=== PATIENT | female | born 1985 | race Caucasian/White ===

== ENCOUNTER 2016-11-12 17:34 | Emergency (ER) | payer OTHER ==
[2016-11-12 18:57] LABS: CHLORIDE,CL 108 mmol/L (98-110); SODIUM,NA 140 mmol/L (136-146)
[2016-11-12] MEDS ORDERED: Sodium Chloride 0.9% 1,000 ML IV ONE (19:03)
--- NOTE | 2016-11-12 19:03 | EDM.PDOC ---
ED HPI GENERAL MEDICAL PROBLEM - General Chief Complaint: Fever Stated Complaint: COLD/FEVER Time Seen by Provider: 11/12/16 18:25 Source of Information: Reports: Patient History Limitations: Reports: No limitations - History of Present Illness INITIAL COMMENTS - FREE TEXT/NARRATIVE: History of present illness: [31-year-old female comes in complaining of fever, nausea, and general feelings of being unwell. Patient indicates she's also had some cold-type complaints with sinus discharge that is green white and a cough visit is refractory to OTC treatment] Review of systems: As per history of present illness and below otherwise all systems reviewed and negative. Past medical history: As per history of present illness and as reviewed below otherwise noncontributory. Surgical history: As per history of present illness and as reviewed below otherwise noncontributory. Social history: No reported history of drug or alcohol abuse. Family history: As per history of present illness and as reviewed below otherwise noncontributory. Physical exam: HEENT: Atraumatic, normocephalic, pupils reactive, negative for conjunctival pallor or scleral icterus, mucous membranes moist with oral pharyngeal erythema without white patchy exudate, throat clear, neck supple, nontender, trachea midline. Lungs: Clear to auscultation, breath sounds equal bilaterally, chest nontender. Heart: S1S2, regular, negative for clicks, rubs, or JVD. Abdomen: Soft, nondistended, nontender. Negative for masses or hepatosplenomegaly. Negative for costovertebral tenderness. Pelvis: Stable nontender. Genitourinary: Deferred. Rectal: Deferred. Extremities: Atraumatic, negative for cords or calf pain. Neurovascular unremarkable. Neuro: Awake, alert, oriented. Cranial nerves II through XII unremarkable. Cerebellum unremarkable. Motor and sensory unremarkable throughout. Exam nonfocal. Diagnostics: [CBC, CMP, UA, Urine hCG] Therapeutics: [] Impression: [Bacterial pharyngitis, cough, fever] Plan: [antibiotics , t3] Definitive disposition and diagnosis as appropriate pending reevaluation and review of above. - Related Data Allergies Allergy/AdvReac Type Severity Reaction Status Date / Time azithromycin [From Zithromax] Allergy Hives Verified 11/12/16 17:55 hydrocodone Allergy Nausea Verified 11/12/16 17:56 Penicillins Allergy Rash Verified 11/12/16 17:56 Home Meds: Home Meds . 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 Musculoskeletal History: Reports: None Neurological History: Reports: None Psychiatric History: Reports: None Endocrine/Metabolic History: Reports: None Hematologic History: Reports: None Immunologic History: Reports: None Oncologic (Cancer) History: Reports: None Dermatologic History: Reports: None - Infectious Disease History Infectious Disease History: Reports: None - Past Surgical History Head Surgeries/Procedures: Reports: None HEENT Surgical History: Reports: Naso-sinus surgery, Tonsillectomy Female Surgical History: Reports: D&C Social & Family History - Tobacco Use Smoking Status *Q: Never Smoker Second Hand Smoke Exposure: No - Caffeine Use Caffeine Use: Reports: Coffee, Soda - Recreational Drug Use Recreational Drug Use: No ED ROS GENERAL - Review of Systems Review Of Systems: See Below (See history of present illness) ED EXAM, GENERAL - Physical Exam Exam: See Below (See history of present illness) Course - Vital Signs Last Recorded V/S: Last Vital Signs Temp 37.7 C 11/12/16 19:00 Pulse 112 H 11/12/16 20:35 Resp 18 11/12/16 20:35 BP 134/67 11/12/16 20:35 Pulse Ox 98 11/12/16 20:35 - Orders/Labs/Meds Orders: Active Orders 24 hr Category Date Time Status RT Aerosol Therapy [RC] ASDIRECTED Care 11/12/16 20:05 Ordered CULTURE STREP A CONFIRMATION [RM] Stat Lab 11/12/16 20:30 Results STREP SCRN A RAPID W CULT CONF [RM] Stat Lab 11/12/16 20:17 Uncollected Labs: Laboratory Tests 11/12/16 11/12/16 11/12/16 Range/Units 18:03 18:25 18:25 WBC 7.59 (4.0-11.0) K/uL RBC 4.95 (4.30-5.90) M/uL Hgb 14.9 (12.0-16.0) g/dL Hct 43.6 (36.0-46.0) % MCV 88.1 (80.0-98.0) fL MCH 30.1 (27.0-32.0) pg MCHC 34.2 (31.0-37.0) g/dL RDW Std Deviation 42.4 (28.0-62.0) fl RDW Coeff of Nicole 13 (11.0-15.0) % Plt Count 214 (150-400) K/uL MPV 9.60 (7.40-12.00) fL Neut % (Auto) 58.9 (48.0-80.0) % Lymph % (Auto) 25.4 (16.0-40.0) % [place] % (Auto) 12.4 (0.0-15.0) % Eos % (Auto) 3.0 (0.0-7.0) % Baso % (Auto) 0.3 (0.0-1.5) % Neut # (Auto) 4.5 (1.4-5.7) K/uL Lymph # (Auto) 1.9 (0.6-2.4) K/uL [place] # (Auto) 0.9 H (0.0-0.8) K/uL Eos # (Auto) 0.2 (0.0-0.7) K/uL Baso # (Auto) 0.0 (0.0-0.1) K/uL Nucleated RBC % 0.0 /100WBC Nucleated RBCs # 0 K/uL Sodium 140 (136-146) mmol/L Potassium 4.1 (3.5-5.1) mmol/L Chloride 108 (98-110) mmol/L Carbon Dioxide 22 (21-31) mmol/L BUN 12 (6.0-23.0) mg/dL Creatinine 0.9 (0.6-1.5) mg/dL Est Cr Clr Drug Dosing 76.30 mL/min Estimated GFR (MDRD) > 60.0 ml/min Glucose 76 (60-110) mg/dL Calcium 9.7 (8.8-10.8) mg/dL Total Bilirubin 0.3 (0.1-1.5) mg/dL AST 22 (5-40) IU/L ALT 23 (8-54) IU/L Alkaline Phosphatase 90 (40-150) Total Protein 7.8 (6.0-8.0) g/dL Albumin 4.4 (3.5-5.0) g/dL Globulin 3.4 (2.0-3.5) g/dL Albumin/Globulin Ratio 1.3 (1.3-2.8) HCG, Quant 1.2 mIU/mL Urine Color YELLOW Urine Appearance CLEAR Urine pH 6.5 (5.0-8.0) Ur Specific [place] 1.015 (1.001-1.035) Urine Protein NEGATIVE (NEGATIVE) mg/dL Urine Glucose (UA) NEGATIVE (NEGATIVE) mg/dL Urine Ketones NEGATIVE (NEGATIVE) mg/dL Urine Occult Blood NEGATIVE (NEGATIVE) Urine Nitrite NEGATIVE (NEGATIVE) Urine Bilirubin NEGATIVE (NEGATIVE) Urine Urobilinogen 0.2 (<2.0) EU/dL Ur Leukocyte Esterase NEGATIVE (NEGATIVE) Urine RBC 0-1 (0-2/HPF) Urine WBC 0-1 (0-5/HPF) Ur Epithelial Cells FEW (NONE-FEW) Urine Bacteria RARE (NEGATIVE) Meds: Medications Discontinued Medications Generic Name Dose Route Start Last Admin Trade Name Rashaadq PRN Reason Stop Dose Admin Albuterol/Ipratropium 3 ml 11/12/16 20:05 11/12/16 20:13 Duoneb 3.0-0.5 Mg/3 Ml NEB 11/12/16 20:06 3 ml ONETIME ONE Administration Sodium Chloride 1,000 mls @ 999 mls/hr 11/12/16 19:03 11/12/16 19:20 Normal Saline IV 11/12/16 20:03 999 mls/hr STAT ONE Administration Ketorolac Tromethamine 30 mg 11/12/16 19:22 11/12/16 20:06 Toradol IVPUSH 11/12/16 19:23 30 mg ONETIME ONE Administration Departure - Departure Time of Disposition: 20:57 Disposition: Home, Self-Care 01 Condition: good Clinical Impression: Pharyngitis, Cough, Fever Forms: ED Department Discharge Additional Instructions: The following information is given to patients seen in the emergency department who are being discharged to home. This information is to outline your options for follow-up care. We provide all patients seen in our emergency department with a follow-up referral. The need for follow-up, as well as the timing and circumstances, are variable depending upon the specifics of your emergency department visit. If you don't have a primary care physician on staff, we will provide you with a referral. We always advise you to contact your personal physician following an emergency department visit to inform them of the circumstance of the visit and for follow-up with them and/or the need for any referrals to a consulting specialist. The emergency department will also refer you to a specialist when appropriate. This referral assures that you have the opportunity for follow-up care with a specialist. All of these measure are taken in an effort to provide you with optimal care, which includes your follow-up. Under all circumstances we always encourage you to contact your private physician who remains a resource for coordinating your care. When calling for follow-up care, please make the office aware that this follow-up is from your recent emergency room visit. If for any reason you are refused follow-up, please contact the [facility] Emergency Department at and asked to speak to the emergency department charge nurse. Take medication as directed Pump and dump this first round of breast milk as discussed Followup with primary care 1-2 days Return to ED as needed as discussed - My Orders Last 24 Hours: My Active Orders 11/12/16 20:05 RT Aerosol Therapy [RC] ASDIRECTED 11/12/16 20:17 STREP SCRN A RAPID W CULT CONF [RM] Stat 11/12/16 20:30 CULTURE STREP A CONFIRMATION [] Stat - Assessment/Plan Last 24 Hours: My Active Orders 11/12/16 20:05 RT Aerosol Therapy [RC] ASDIRECTED 11/12/16 20:17 STREP SCRN A RAPID W CULT CONF [RM] Stat 11/12/16 20:30 CULTURE STREP A CONFIRMATION [RM] Stat
[2016-11-12] MEDS ORDERED: Ketorolac 30 MG/ML SDV IVPUSH ONE (19:22)
[2016-11-12] MEDS ORDERED: Albuterol/Ipratropium 3.0-0.5 MG/3 ML Neb Soln NEB ONE (20:05)
[2016-11-12 20:36] VITALS: BP 134/67
== END 2016-11-12 21:06 | disposition home or self-care (01) ==
LOC: MW.ED 17:34
DX: J02.8 Acute pharyngitis due to other specified organisms (principal); B96.89 Other specified bacterial agents as the cause of diseases classified elsewhere; J45.909 Unspecified asthma, uncomplicated; Z98.890 Other specified postprocedural states; Z88.0 Allergy status to penicillin; Z88.1 Allergy status to other antibiotic agents; Z88.5 Allergy status to narcotic agent
CPT/HCPCS: 36415; 80053; 81001; 84702; 85025; 87081; 87880; 94664; 96361; 96374; 99284; J1885; J7040; 99283

== ENCOUNTER 2017-08-09 07:34 | Day surgery (SDC) | payer OTHER ==
--- NOTE | 2017-08-09 08:15 | PCM.PREANE ---
Preanesthetic Assessment - Anesthesia/Transfusion/Family Hx Anesthesia History: Prior Anesthesia Without Reaction Family History of Anesthesia Reaction: No Transfusion History: No Prior Transfusion(s) - Review of Systems General: No Symptoms Pulmonary: No Symptoms Cardiovascular: No Symptoms Gastrointestinal: No Symptoms Neurological: No Symptoms Other: Reports: None - Physical Assessment NPO Status Date: 08/08/17 O2 Sat by Pulse Oximetry: 99 Respiratory Rate: 16 Vital Signs: Last Vital Signs Temp 36.5 C 08/09/17 07:58 Pulse 71 08/09/17 07:58 Resp 16 08/09/17 07:58 BP 114/48 L 08/09/17 07:58 Pulse Ox 99 08/09/17 07:58 Height: 1.62 m Weight: 70.307 kg ASA Class: 2 Mental Status: Alert & Oriented x3 Airway Class: Mallampati = 1 Dentition: Reports: Normal Dentition ROM/Head Extension: Full Lungs: Clear to Auscultation, Normal Respiratory Effort Cardiovascular: Regular Rate, Regular Rhythm - Lab Values: Laboratory Last Values WBC 10.67 K/uL (4.0-11.0) 08/08/17 13:00 RBC 4.87 M/uL (4.30-5.90) 08/08/17 13:00 Hgb 14.8 g/dL (12.0-16.0) 08/08/17 13:00 Hct 43.6 % (36.0-46.0) 08/08/17 13:00 MCV 89.5 fL (80.0-98.0) 08/08/17 13:00 MCH 30.4 pg (27.0-32.0) 08/08/17 13:00 MCHC 33.9 g/dL (31.0-37.0) 08/08/17 13:00 RDW Std Deviation 42.7 fl (28.0-62.0) 08/08/17 13:00 RDW Coeff of Nicole 13 % (11.0-15.0) 08/08/17 13:00 Plt Count 198 K/uL (150-400) 08/08/17 13:00 MPV 9.70 fL (7.40-12.00) 08/08/17 13:00 Nucleated RBC % 0.0 /100WBC 08/08/17 13:00 Nucleated RBCs # 0 K/uL 08/08/17 13:00 Blood Type A POSITIVE 08/08/17 13:00 Antibody Screen NEGATIVE 08/08/17 13:00 - Allergies Allergies/Adverse Reactions: Allergies Allergy/AdvReac Type Severity Reaction Status Date / Time azithromycin [From Zithromax] Allergy Hives Verified 08/08/17 10:54 hydrocodone Allergy Nausea/diar Verified 08/08/17 10:55 nikki Penicillins Allergy Rash Verified 08/08/17 10:54 - Anesthesia Plan Pre-Op Medication Ordered: None - Acknowledgements Anesthesia Type Planned: General Anesthesia Pt an Appropriate Candidate for the Planned Anesthesia: Yes Alternatives and Risks of Anesthesia Discussed w Pt/Guardian: Yes Pt/Guardian Understands and Agrees with Anesthesia Plan: Yes PreAnesthesia Questionnaire HEENT History: Reports: Other (See Below) Other HEENT History: wears glasses/contacts Cardiovascular History: Reports: None Respiratory History: Reports: Asthma Other Respiratory History: allergy induced asthma Gastrointestinal History: Reports: None Genitourinary History: Reports: None 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: Musculoskeletal History: Reports: None Neurological History: Reports: None Psychiatric History: Reports: None Endocrine/Metabolic History: Reports: None Hematologic History: Reports: None Immunologic History: Reports: None Oncologic (Cancer) History: Reports: None Dermatologic History: Reports: Eczema - Infectious Disease History Infectious Disease History: Reports: None - Past Surgical History Head Surgeries/Procedures: Reports: None HEENT Surgical History: Reports: Naso-Sinus Surgery, Tonsillectomy Other HEENT Surgeries/Procedures: nasal surgery for deviated septum Female Surgical History: Reports: D&C - SUBSTANCE USE Smoking Status *Q: Never Smoker Second Hand Smoke Exposure: No Recreational Drug Use History: No - HOME MEDS Home Medications: Home Meds . [No Known Home Meds] 11/12/16 [History]
[2017-08-09] MEDS ORDERED: Dexamethasone 4 MG/ML 5 ML MDV ONE ×2 (08:54→08:56)
[2017-08-09] MEDS ORDERED: Atropine 1 MG/ML SDV ONE ×2 (08:54→08:56)
[2017-08-09] MEDS ORDERED: Lidocaine 2% 5 ML SDV ONE ×2 (08:54→08:56)
[2017-08-09] MEDS ORDERED: Ketorolac 30 MG/ML SDV ONE ×2 (08:54→08:56)
[2017-08-09] MEDS ORDERED: Ondansetron 4 MG/2 ML SDV ONE ×2 (08:54→08:56)
[2017-08-09] MEDS ORDERED: Propofol 200 MG/20 ML SDV ONE (09:00)
[2017-08-09] MEDS ORDERED: Midazolam 1 MG/ML 2 ML SDV ONE (09:00)
[2017-08-09] MEDS ORDERED: fentaNYL 100 MCG/2 ML SDV ONE (09:00)
[2017-08-09] MEDS ORDERED: Methylergonovine 0.2 MG/1 ML Amp ONE (09:24)
[2017-08-09] MEDS ORDERED: Acetaminophen 1,000 MG in Premix Bag 1 BAG IV ONE (09:57)
[2017-08-09] MEDS ORDERED: fentaNYL 100 MCG/2 ML SDV IVPUSH PRN (09:57)
--- NOTE | 2017-08-09 10:06 | PCM.OPNOTE ---
- General Post-Op/Procedure Note Date of Surgery/Procedure: 08/09/17 Operative Procedure(s): suction dilatation and curettage Findings: preop uterus 10 week size, boggy, sounds to 11 cm. Post op firm 7-8 weeks size Pre Op Diagnosis: missed Post-Op Diagnosis: Same Anesthesia Technique: General LMA Primary Surgeon: Yazmin Christianson Anesthesia Provider: Wellington Brown Pathology: products of conception Fluid Replacement, Intraop: 1,000 EBL in mLs: 500 Complications: None Condition: Good
--- NOTE | 2017-08-09 10:21 | PCM.POSTAN ---
POST ANESTHESIA ASSESSMENT - MENTAL STATUS Mental Status: Alert, Oriented - RESPIRATORY Respiratory Status: Respiratory Rate WNL, Airway Patent, O2 Saturation Stable - CARDIOVASCULAR CV Status: Pulse Rate WNL, Blood Pressure Stable - GASTROINTESTINAL GI Status: No Symptoms - POST OP HYDRATION Hydration Status: Adequate & Stable
--- NOTE | 2017-08-09 10:21 | PCM48HPAN ---
Post Anesthesia Note - EVALUATION WITHIN 48HRS OF ANESTHETIC Vital Signs in Normal Range: Yes Patient Participated in Evaluation: Yes Respiratory Function Stable: Yes Airway Patent: Yes Cardiovascular Function Stable: Yes Hydration Status Stable: Yes Pain Control Satisfactory: Yes Nausea and Vomiting Control Satisfactory: Yes Mental Status Recovered: Yes
[2017-08-09 11:15] VITALS: BP 97/51
--- NOTE | 2017-08-09 11:45 | OR ---
SURGEON: Yazmin Christianson M.D. DATE OF PROCEDURE: 08/09/2017 PREOPERATIVE DIAGNOSIS: First trimester, missed . POSTOPERATIVE DIAGNOSIS: First trimester, missed . PROCEDURE: Suction, dilatation, and curettage. ANESTHESIA: General LMA. ESTIMATED BLOOD LOSS: 500 mL. FLUIDS: 1000 mL crystalloid. FINDINGS: Preoperatively, the uterus was anteverted, 10 to 11 week size, somewhat boggy. Postoperatively, this uterus sounded to 11 cm. Postoperatively, the uterus was firm, 7 to 8 week size with minimal bleeding. COMPLICATIONS: None known. DISPOSITION: Stable to recovery. BRIEF HISTORY: This is a 32-year-old female. She is G4, P1-0-2-1. She presented for initial OB visit and was diagnosed with an 8-week embryonic demise. She was supposed to be 11 weeks by LMP. There was confirmed no cardiac activity and she was given options of treatment with expectant management, Cytotec or suction D and C, with risks and benefits of each discussed, and she desired to proceed with suction D and C, with risks discussed including bleeding, infection, uterine perforation, Asherman syndrome, risk of hysterectomy, and risk of anesthesia. Understanding all these risks, she does desire to proceed. DESCRIPTION OF PROCEDURE: With the patient in the dorsal lithotomy position, under adequate LMA analgesia, the perineum and vagina were prepped with Betadine and draped in usual fashion for vaginal surgery. An appropriate time-out was held. Bimanual examination revealed an anteverted 11-week size uterus, somewhat boggy. Speculum was placed into the vagina. The patient had received Cytotec 6 hours prior to the procedure, 200 mcg orally. The anterior cervix was grasped with an Allis clamp. The cervix was easily dilated to a 10 mm Hegar dilator. The 10 mm suction curette was placed to the uterine fundus and repetitively removed with continuous turning motion until no further tissue was obtained and there was minimal bleeding. Sharp curette was utilized to evaluate the uterus. At the 12, 3, 6, and 9 o'clock position, a good uterine cry was felt on all surfaces. There was no further tissue. Two additional passes were taken with the suction curette. The methargen was given IM and the speculum was removed from the vagina. There was minimal bleeding. Bimanual examination revealed an 8-week size, firm, anteverted uterus with minimal bleeding. Specimen was products of conception. Complications none known. DISPOSITION: She is stable in Recovery. VILMA FIERRO /[id number]
== END 2017-08-09 11:14 | disposition home or self-care (01) ==
LOC: MW.SDS 07:34
PROVIDERS: ATTEND Obstetrics & Gynecology
DX: O02.1 Missed abortion (principal); J45.909 Unspecified asthma, uncomplicated; H55.09 Other forms of nystagmus; Z88.5 Allergy status to narcotic agent; Z88.0 Allergy status to penicillin; Z88.1 Allergy status to other antibiotic agents; Z90.89 Acquired absence of other organs
CPT/HCPCS: 36415; 59820; 85027; 86850; 86900; 86901; J0461; J1100; J1885; J2210; J2250; J2405; J3010; 01965; 88305; J2704